=== PATIENT | male | born 1990 | race Caucasian/White ===

== ENCOUNTER 2021-01-21 17:30 | Emergency (ER) | payer BC, SELFPAY ==
[2021-01-21 18:30] VITALS: BP 145/71; PULSE 73; RESP 18; TEMP 36.8; O2SAT 98; BMI 35.0
[2021-01-21 18:50] LABS: UTC Strep Screen (Rapid) Negative (Negative)
--- NOTE | 2021-01-21 18:51 | [facility].EDUTC ---
[facility] [place] Clinical Impression: Pharyngitis Qualifiers: Pharyngitis/tonsillitis etiology: unspecified etiology Qualified Code(s): J02.9 - Acute pharyngitis, unspecified Disposition: Home, Self-Care Condition on Discharge: Good Instructions: Sore Throat, DI for Pharyngitis/Tonsillopharyngitis -- Adult Additional Instructions: Drink plenty of fluids. Take tylenol or ibuprofen for pain or fever. Take the medications as directed. Follow up with your regular doctor. GO TO THE ER FOR ANY WORSENING SYMPTOMS Prescriptions: Brompheniramine/Pseudoephed/Dm [Bromfed Dm Cough Syrup] 5 ml PO Q6HP PRN #240 ml PRN Reason: Cough Transmission Status: Received by [id number] Azithromycin [Z-Joshua 250mg Tab*] 250 mg PO UD DOSE PK #6 tab Transmission Status: Received by [id number] Referrals: Provider,Referral, MD [Primary Care Provider] - Forms: Work/School Release Time of Disposition: 18:53 Medical Decision Making - Medical Records Medical records reviewed: No: I reviewed the patient's medical records. - Mark Inquiry Pt receiving controlled substance: No Vital Signs: 01/21/21 18:30 01/21/21 18:55 Temperature 98.3 F 98.3 F Temperature Source Oral Pulse Rate 73 Pulse Rate [Right Brachial] 73 Respiratory Rate 18 18 Blood Pressure 145/71 H Blood Pressure [Right Arm] 145/71 H Blood Pressure Mean [Right Arm] 95 Blood Pressure Source [Right Arm] Automatic Cuff Blood Pressure Position [Right Arm] Sitting 02 Sat by Pulse Oximetry 98 Oxygen Delivery Method Room Air - Lab Data Lab results reviewed: Yes: I reviewed the patient's lab results. Lab Results 01/21/21 18:47: Strep Scn Rapid Clinic Negative Orders (Tests/Meds): ORDERS Category Date Time Status Strep Screen Confirmation Routine Micro 01/21/21 18:47 Received [facility] [place] HPI - General Stated complaint: sore throat, cough Time Seen by Provider: 01/21/21 18:51 Mode of Arrival: Ambulatory Source of Information: Patient Limitations: No Limitations Description of Symptoms (Recalled from Triage Doc. by RN): PATIENT C/O SORE THROAT AND COUGH WITH PHLEGM THAT STARTED YESTERDAY HEENT Symptoms (Recalled from RN notes): Yes Resp Symptoms (Recalled from RN notes): Yes Skin Symptoms (Recalled from RN notes): No MS Symptoms (Recalled from RN notes): No Functional Status (Recalled from RN notes): WNL - History of Present Illness Provider Complaint: He states that he has had a sore throat for the past 2 days. He was tested for covid-19 today at his job at [employer] and it was negative. He has had some chilling also. - Related Data Previous Rx's Medication Instructions Recorded Azithromycin [Z-Joshua 250mg Tab*] 250 mg PO UD DOSE PK #6 tab 01/21/21 Brompheniramine/Pseudoephed/Dm 5 ml PO Q6HP PRN #240 ml 01/21/21 [Bromfed Dm Cough Syrup] Allergies Allergy/AdvReac Type Severity Reaction Status Date / Time No Known Allergies Allergy Verified 01/21/21 18:48 - Worker's Comp Is this a Worker's Comp case?: No [facility] History - Hepatitis A Screen Drug use history?: No High risk sexual behaviors?: No History of sexually transmitted infection?: No Currently employed?: No Childcare worker?: No Do you have indoor plumbing?: Yes Do you have electricity?: Yes Attestation statement:: This patient has been screened for Hepatitis A risk factors. I have reviewed the patient's past medical history: Yes ROS Obtained: Yes All systems reviewed & no additional complaints - Constitutional Constitutional: Reports chills, Denies fever(s), Reports poor appetite, Reports malaise - Eyes Eyes: Denies eye discharge - ENT Ears, Nose, Mouth, and Throat: Reports as per HPI - Cardiovascular Cardiovascular: Denies chest pain - Respiratory Respiratory: Denies chest congestion, Reports cough, Denies stridor, Denies wheezing - Gastrointestinal Gastrointestingal: Reports: diarrhea, nausea. Denies: abdominal pain, v
[2021-01-21 18:55] VITALS: BP 145/71; PULSE 73; RESP 18; TEMP 36.8; O2SAT 98
== END 2021-01-21 18:57 | disposition home or self-care (01) ==
PROVIDERS: Emergency Provider Nurse Practitioner Family
DX: J02.9 Acute pharyngitis, unspecified (principal)
CPT/HCPCS: 87880; 99202; G0463